=== PATIENT | male | born 1990 | race Caucasian/White ===

== ENCOUNTER → 2019-04-20 13:35 | Outpatient (CLI) | payer SELFPAY ==
[2019-04-20 13:44] VITALS: BP 101/67; PULSE 73; RESP 14; TEMP 36.7; O2SAT 97; BMI 19.3
--- NOTE | 2019-04-20 13:55 | HTC.HP3 ---
Problem List (1) Hemophilia B in male Status: Chronic Subjective Date of Service:: 04/20/19 Chief Complaint: F/u for Hemophilia B. 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 Used factor replacement a few weeks ago for spontaneous bruise of L leg. No dental work this year. Health History: Past Medical History (Last Reviewed 04/20/19 @ 13:43 by Meli Magallanes) Hemophilia B (Acute) NO KNOWN SURGERY HISTORY (Acute) Family History (Last Reviewed 04/20/19 @ 13:43 by Meli Magallanes) Other NO KNOW FAMILY HISTORY Allergies/Adverse Reactions: Allergy/AdvReac Type Severity Reaction Status Date / Time aspirin AdvReac Severe BLEEDING Verified 04/20/19 13:42 Risk Factors Social History Social History: No changes Smoking Status Current every day smoker Tobacco Risk Data: Tobacco Risk Smoking Status Current every day smoker Type of tobacco: Smokeless tobacco usage: Never Items/Day: Year started: Years used: 8 Counseled to quit/cut down: Reason for no counseling performed: Reason for no pharmacotherapy: Tobacco use comments: Passive smoke exposure: Substance Risk Drug use: No Caffeine use [drinks/day]: Alcohol use: No Type of alcohol: Drinks per day: Has patient felt the need to cut down: Has the patient been annoyed by complaints: Has the patient felt guilty about drinking: Has the patient 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: Comments: Review of Systems Constitutional:: Denies: Fever, Sweats, Weight loss, Appetite change, Chills Cardiovascular:: Denies: Chest pain, Palpitations, Dyspnea on exertion, Orthopnea, PND, Shortness of breath Respiratory: Denies: Cough, Hemoptysis, Shortness of Breath, Wheezing Gastrointestinal:: Denies: Abdominal pain, Nausea, Vomiting, Diarrhea, Constipation, Hematochezia Genitourinary: Denies: Dysuria, Hematuria, 15, Flank pain Musculoskeletal:: Denies: Back pain, Myalgia, Arthralgia Skin: Denies: Rash, Skin Changes, Wounds Neurological:: Denies: Headache, Dizziness, Visual changes, Tinnitus, Hearing loss Psychiatric: Denies: Anxiety, Depression, Homicidal Ideations, Suicidal Ideations Vital Signs Height 5 ft 10 in Weight: 61.326 kg Weight in Pounds 135.2 lbs Pulse Ox 97 Temperature 98.1 F Pulse Rate 73 Respiratory Rate 14 Blood Pressure 101/67 Blood Pressure Position Sitting - Physical Exam General: Alert, Oriented x3, No apparent distress HEENT: Atraumatic, PERRLA, EOMI, Normocephalic Oropharynx:: Dry mucosa Neck:: Supple, Trachea midline. Negative for: JVD, bilateral Cardiac:: Regular rate, Regular rhythm, Normal S1, Normal S2. Negative for: Murmur Lungs: Clear to auscultation, Excusion symmetrical. Negative for: Rhonchi, Wheezes Abdomen:: Bowel sounds x 4, Soft, Non-tender, Non-distended. Negative for: Hepatosplenomegaly Extremities:: Negative for: Cyanosis, Edema Neurological: Neuro grossly intact Skin:: - - Old 15mm bruise Left leg, medial aspects.. Negative for: Rash, Petechiae, Ecchymosis Psychiatric:: Appropriate affect, Euthymic Lymphatics:: Negative for: Cervical lymphadenopathy, Supraclavicular lymphadenopathy, Axillary lymphadenopathy Assessment and Plan Hemophilia B, clinically stable. Old bruise Left leg. Plan is to continue expectant management with factor replacement as needed. RTC 1 yr. Primary Care Provider: Egdar Sandoval DO Referring Provider:
== END ==
PROVIDERS: Family Provider Family Medicine; PCP Family Medicine; Visit Provider Internal Medicine Hematology & Oncology
DX: D67 Hereditary factor IX deficiency (principal)